=== PATIENT | female | born 1990 | race Caucasian/White ===

== ENCOUNTER 2016-12-10 22:16 | Emergency (ER) | payer MEDICAID, OTHER ==
[~2016-12-10] VITALS: Ht 170.2 cm; Wt 103.0 kg
[2016-12-10 22:35] VITALS: Ht 170.2 cm; Wt 103.0 kg
[2016-12-10] MEDS ORDERED: IBUPROFEN 600 MG TAB PO STA (23:05)
[2016-12-10] MEDS ORDERED: TRIMETHOPRIM/SULFAMETHOX (DS) TAB PO STA (23:05)
[2016-12-10] MEDS ORDERED: CEPHALEXIN 500 MG CAP PO STA (23:05)
[2016-12-10] MEDS ORDERED: ACETAMINOPHEN 500 MG TAB PO STA (23:05)
[2016-12-10] MEDS ORDERED: SULF1TAB31 PO (23:30)
[2016-12-10] MEDS ORDERED: ACET325T33 PO (23:30)
[2016-12-10] MEDS ORDERED: CEPH-443 PO (23:30)
--- NOTE | 2016-12-11 00:34 | ERD ---
ER Documentation Chief Complaint Date/Time DATE: 12/11/16 TIME: 00:29 Chief Complaint pain and redness on left lateral flank x 2 weeks HPI This is a 26-year-old female presenting to the emergency department complaining of pain, redness, warmth patch on the left lateral flank for the past 2 weeks status post trying to pop a pimple. Patient denies any fevers or chills. She states the pain is constant, throbbing and rates it moderate to severe. Patient denies taking any medications for this. ROS All systems reviewed and are negative except as per history of present illness. Medications Home Meds Active Scripts Acetaminophen* (Tylenol*) 325 Mg Tablet, 2 TAB PO Q4 Y for PAIN AND OR ELEVATED TEMP, #20 TAB Prov:ROCÍO LI PA-C 12/10/16 Sulfamethoxazole/Trimethoprim* (Bactrim Ds* Tablet) 1 Each Tablet, 1 TAB PO BID , #14 TAB Prov:ROCÍO LI PA-C 12/10/16 Cephalexin* (Keflex*) 500 Mg Capsule, 500 MG PO QID for 10 Days, CAP Prov:ROCÍO LI PA-C 12/10/16 Reported Medications [none] No Conflict Check 06/01/13 Allergies Allergies: Uncoded Allergies: NONE (Allergy, 06/01/13) PMhx/Soc Medical and Surgical Hx: pt denies Medical Hx, pt denies Surgical Hx Hx Alcohol Use: No Hx Substance Use: No Hx Tobacco Use: No Smoking Status: Never smoker Physical Exam Vitals Vital Signs Date Time Temp Pulse Resp B/P Pulse Ox O2 Delivery O2 Flow Rate FiO2 12/10/16 22:35 100.2 119 20 126/84 99 Physical Exam General: WD/WN, in no apparent distress, non-toxic appearing HENT: NC/AT Eyes: Conjunctiva normal Neck: Supple Pulm: Clear to auscultation, normal labored breathing; no wheezing/rales/ rhonchi heard CV: Good capillary refill GI: Non-distended, no guarding Back: No masses Ext: No clubbing, cyanosis, or edema Neuro: Moves on all fours Skin: warm, indurated, erythematous ~7cm x 5cm patch on left lateral flank, no streaking, no fluctuance. No fluctuance Psych: Normal mood Results 24 hrs Current Medications Medications (Trade) Dose Ordered Sig/Wale Route PRN Reason Start Time Stop Time Status Last Admin Dose Admin Cephalexin (Keflex) 500 mg ONCE STAT PO 12/10/16 23:05 12/10/16 23:06 DC 12/10/16 23:22 Trimethoprim/ Sulfamethoxazole (Bactrim (Ds)) 1 tab ONCE STAT PO 12/10/16 23:05 12/10/16 23:06 DC 12/10/16 23:22 Ibuprofen (Motrin) 600 mg ONCE STAT PO 12/10/16 23:05 12/10/16 23:06 DC 12/10/16 23:23 Acetaminophen (Tylenol Tab) 1,000 mg ONCE STAT PO 12/10/16 23:05 12/10/16 23:06 DC 12/10/16 23:23 Procedures/MDM This is a 26-year-old female presenting to the emergency department with left lateral flank cellulitis due to her trying to pop a pimple 2 weeks ago. Patient denies chills or fevers however presented febrile and tachycardiac. There was no evidence of any abscess to drain, no evidence of lymphangitis, osteomyelitis. Patient appears nontoxic and I do not believe she has sepsis. In the ED cellulitis was marked with a skin marker and she was given Tylenol, ibuprofen, Bactrim and Keflex. Patient is stable for discharge for home with precautions to return to the emergency room for any worsening signs or symptoms. I discussed the patient to return in 2 days for wound check. Discussed to follow-up with primary care physician. Patient understands and agrees with this plan. She hemodynamically stable for discharge for home Prescriptions keflex and bactrim given Departure Diagnosis: Primary Impression: Cellulitis Condition: Stable Patient Instructions: Cellulitis Referrals: Pop doctora Additional Instructions: Visite a opp [facility]res para un EXAMEN.Regrese a estas instalaciones si no se mejora anna esperbamos o anna le dijimos. Eccles toda la medicina evans y anna se le indic. Regrese a estas instalaciones si no se mejora anna esperbamos o anna le dijimos. WOUND CHECK:CONSULTE A POP MDICO EN 2 cedeno para dex POP HERIDA. ROCÍO LI PA-C December 11, 2016 00:34
== END 2016-12-10 23:50 | disposition home or self-care (01) ==
LOC: FTE 22:16
DX: L03.311 Cellulitis of abdominal wall (principal)
CPT/HCPCS: Z7502; Z7610; 99284